=== PATIENT | male | born 1985 | race Caucasian/White ===

== ENCOUNTER 2024-04-27 21:03 | Emergency (ER) | payer MEDICAID ==
[~2024-04-27] VITALS: Ht 188 cm; Wt 90.7 kg
[2024-04-27 21:18] VITALS: BP_SYST 138; PULSE 100; RESP 18; TEMP 98.3; O2SAT 98
[2024-04-27] MEDS: NACL 0.9% 1,000 ML IV ONE (21:34)
[2024-04-27 22:17] LABS: LYMPHOCYTES # (AUTO) 0.4 K/uL (1.0-5.5); MEAN CORPUSCULAR HEMOGLOBIN 29 pg (27-31); MONOCYTES # (AUTO) 0.2 K/uL (0.0-1.0); NEUTROPHILS # (AUTO) 2.5 K/uL (1.8-7.7); WHITE BLOOD COUNT (AUTO) 3.1 K/uL (4.8-10.8)
[2024-04-27 22:25] LABS: ALBUMIN 3.5 g/dL (3.4-4.8); BILIRUBIN,DIRECT 0.3 mg/dL (0.0-0.3); CALCIUM 7.8 mg/dL (8.4-11.0); CREATININE 0.89 mg/dL (0.55-1.30); POTASSIUM 3.6 mmol/L (3.5-5.1); TOTAL BILIRUBIN 0.8 mg/dL (0.0-1.0); TOTAL PROTEIN, SERUM 6.9 g/dL (6.4-8.3)
[2024-04-27 22:32] LABS: BASOPHILS % (AUTO) 0.1 % (0.0-2.0); HEMATOCRIT 42.9 % (36-54); HEMOGLOBIN 14.7 g/dL (14.0-18.0); LYMPHOCYTES % (AUTO) 12.7 % (20.5-51.5); MEAN CORPUSCULAR HGB CONC 34 % (32-36); MEAN CORPUSCULAR VOLUME 83 fL (79.0-98.0); MONOCYTES % (AUTO) 5.3 % (1.7-9.3); NEUTROPHILS % (AUTO) 81.9 % (40.0-70.0); RED BLOOD CELL COUNT(AUTO) 5.16 MIL/uL (4.2-6.2); RED CELL DISTRIBUTION WIDTH 15.9 % (9.0-15.0)
[2024-04-27 22:37] LABS: PLATELET COUNT (AUTO) 100 K/uL (130-430)
[2024-04-28] MEDS: LORazepam 2 MG/ML VIAL IVP ONE (00:07)
[2024-04-28] MEDS: ONDANSETRON HCL 4 MG/2 ML VIAL IVP ONE (00:31)
[2024-04-28 10:39] VITALS: BP_SYST 140; PULSE 108; RESP 16; TEMP 98; O2SAT 96
== END 2024-04-28 10:35 | disposition short-term general hospital (02) ==
LOC: SED 21:03
DX: F10.129 Alcohol abuse with intoxication, unspecified (principal); R51.9 Headache, unspecified; R94.31 Abnormal electrocardiogram [ECG] [EKG]; Y90.8 Blood alcohol level of 240 mg/100 ml or more
CPT/HCPCS: 99285; 70450; 80076; 80048; 85025; 36415; 93005; 96374; 96375; J7030; J2060; J2405; G0482